=== PATIENT | female | born 1955 | race Caucasian/White ===

== ENCOUNTER 2021-03-12 22:00 | Day surgery (SDCO) | payer OTHER ==
[~2021-03-12] VITALS: Ht 160 cm; Wt 41.7 kg
[~2021-03-12 22:00] MED LIST: EFFEXOR XR37.5 MG PO; EVISTA60 MG PO; NEXIUM40 MG PO; RESTORIL7.5 MG PO; SYNTHROID25 MC1 PO; SYNTHROID50 MC1 PO
[2021-03-12 22:57] LABS: BASOPHIL 0.7 % (0-2); EOSINOPHIL 0.2 % (0-7); HCT 44.3 % (37.0-47.0); HGB 14.6 g/dl (12.5-16.0); LYMPHOCYTE 7.8 % (15-48); MCH 31.4 pg (25.0-31.0); MCV 95.3 fL (78.0-100.0); MONOCYTE 1.7 % (0-12); MPV 10.5 fL (6.0-9.5); NRBC 0; PLT 267 K/uL (150-400); RBC 4.65 M/uL (4.20-5.40); RDW 12.2 % (11.5-14.0); WBC 11.7 K/uL (4.0-10.5)
[2021-03-12 23:16] LABS: INR 1.05 (0.9-1.2); PROTHROMBIN TIME 13.1 SECONDS (11.8-13.4); PTT 23.5 SECONDS (24.4-34.7)
[2021-03-12 23:23] LABS: PRO-BNP 87 pg/mL (<125)
[2021-03-12 23:36] LABS: ALBUMIN 3.6 g/dL (3.4-5.0); ALKALINE PHOSHATASE 58 U/L (46-116); ALT 13 U/L (14-59); AST 16 U/L (15-37); BILIRUBIN - TOTAL 0.3 mg/dL (0.2-1.0); BUN 22 mg/dL (7-18); BUN/CREAT RATIO (CALC) 43.1 RATIO; CHLORIDE 103 mmol/L (98-107); CO2 (BICARBONATE) 27 mmol/L (21-32); CREATININE 0.51 mg/dL (0.51-0.95); GLOBULIN (CALCULATION) 3.3 g/dL; GLUCOSE 122 mg/dL (74-106); LIPASE 94 U/L (73-393); MAGNESIUM 2.1 mg/dL (1.8-2.4); POTASSIUM 3.6 mmol/L (3.5-5.1); TOTAL PROTEIN 6.9 g/dL (6.4-8.2)
[2021-03-12 23:40] LABS: C-REACTIVE PROTEIN <0.20 mg/dL (<=0.90)
[2021-03-12 23:41] LABS: LACTIC ACID 0.9 mmol/L (0.4-1.9)
[2021-03-13 01:36] LABS: BILIRUBIN NEGATIVE (NEGATIVE); BLOOD NEGATIVE Ery/uL (NEGATIVE); CLARITY CLEAR (CLEAR); COLOR YELLOW (YELLOW); GLUCOSE (U) NORMAL (NORMAL); LEUKOCYTES NEGATIVE Leu/uL (NEGATIVE); NITRITE NEGATIVE (NEGATIVE); PROTEIN NEGATIVE (NEGATIVE); UROBILINOGEN 0.2 mg/dL (0.2-1.0); pH 6.5 (5.0-9.0)
[2021-03-14 06:17] LABS: BASOPHIL 0.6 % (0-2); EOSINOPHIL 0 % (0-7); HCT 35.1 % (37.0-47.0); HGB 11.5 g/dl (12.5-16.0); LYMPHOCYTE 17.7 % (15-48); MCH 31.4 pg (25.0-31.0); MCHC 32.8 g/dL (32.0-36.0); MCV 95.9 fL (78.0-100.0); MONOCYTE 9.1 % (0-12); MPV 10.8 fL (6.0-9.5); NRBC 0; PLT 223 K/uL (150-400); RBC 3.66 M/uL (4.20-5.40); RDW 12.2 % (11.5-14.0); WBC 9.6 K/uL (4.0-10.5)
[2021-03-14 06:48] LABS: ALBUMIN 2.9 g/dL (3.4-5.0); BILIRUBIN - TOTAL 0.3 mg/dL (0.2-1.0); BUN/CREAT RATIO (CALC) 46.9 RATIO; CREATININE 0.49 mg/dL (0.51-0.95); GLOBULIN (CALCULATION) 2.5 g/dL; POTASSIUM 3.8 mmol/L (3.5-5.1); TOTAL PROTEIN 5.4 g/dL (6.4-8.2)
[2021-03-14] MEDS ORDERED: AUGMENTIN 500-1 EACH PO (16:02)
[2021-03-14] MEDS ORDERED: ZOFRAN4 M1 PO (17:51)
== END 2021-03-14 18:14 | disposition home or self-care (01) ==
LOC: FER 22:00 → FMS 03-13 03:42
PROVIDERS: Emergency Medicine; Family Medicine; ADMIT Internal Medicine
DX: U07.1 COVID-19 (principal); K52.9 Noninfective gastroenteritis and colitis, unspecified; K57.92 Diverticulitis of intestine, part unspecified, without perforation or abscess without bleeding; M47.817 Spondylosis without myelopathy or radiculopathy, lumbosacral region; M16.0 Bilateral primary osteoarthritis of hip; F41.8 Other specified anxiety disorders; M81.0 Age-related osteoporosis without current pathological fracture; Z90.49 Acquired absence of other specified parts of digestive tract
CPT/HCPCS: 36415; 71275; 80053; 81003; 82728; 83605; 83690; 83735; 83880; 84145; 84443; 84484; 85025; 85610; 85730; 86140; 93005; C9113; C9399; G0378; J0780; J1100; J1170; J1200; J1650; J2060; J2270; J2405; J2543; J7030; J7050; Q9967; U0002